=== PATIENT | female | born 1985 ===

== ENCOUNTER 2017-12-07 06:36 | Day surgery (SDC) | payer BC ==
[~2017-12-07] VITALS: Ht 165.1 cm; Wt 119.7 kg
[2017-12-07] VITALS (8 sets, daily range): BP systolic 117–140; BP diastolic 50–90
[2017-12-07] MEDS ORDERED: LR 1000ml 1,000 ML IVLG SCH ×2 (07:00→07:41)
[2017-12-07] MEDS ORDERED: TOPROL PO (07:34)
[2017-12-07] MEDS ORDERED: OMEPRAZOLE20 M2 ORAL (07:34)
[2017-12-07] MEDS ORDERED: ONE DAILY FOR1 EACH ORAL (07:34)
[2017-12-07] MEDS ORDERED: BIOTIN2500 MCG PO (07:34)
[2017-12-07] MEDS ORDERED: MINASTRIN 24 F1 EACH PO (07:34)
[2017-12-07] MEDS ORDERED: DiphenhydrAMINE 50mg/ml Inj IVP PRN (07:45)
[2017-12-07] MEDS ORDERED: Midazolam 2mg/2ml Inj IVP PRN (07:45)
[2017-12-07] MEDS ORDERED: fentaNYL 100 mcg/2 mL IV PRN (07:45)
[2017-12-07] MEDS ORDERED: Atropine Inj 1mg/10ml Syr IV PRN (07:45)
--- NOTE | 2017-12-07 07:46 | Anethesia Preoperative Eval ---
Anesthesia Pre-op PMH/ROS General Date of Evaluation: December 07, 2017 Time of Evaluation: 07:42 Anesthesiologist: aidan ASA Score: ASA 3 Mallampati Score Class I : Soft palate, uvula, fauces, pillars visible Class II: Soft palate, uvula, fauces visible Class III: Soft palate, base of uvula visible Class IV: Only hard plate visible Mallampati Classification: Class II Surgeon: destiny Diagnosis: gerd Surgical Procedure: egd Anesthesia History: none Family History: no anesthesia problems Allergies: Coded Allergies: No Known Allergies (Unverified , 12/07/17) Medications: see eMAR Past Medical History Cardiovascular: Reports: HTN Pulmonary: Denies: asthma, COPD, LIDYA, other Gastrointestinal/Genitourinary: Reports: GERD, other - pcos, kidney stones Neurologic/Psychiatric: Reports: depression/anxiety, other - vertigo Endocrine: Reports: DM HEENT: Denies: cataract (L), cataract (R), glaucoma, TAKOTNA (L), TAKOTNA (R), other Hematology/Immune: Denies: anemia, DVT, bleeding disorder, other Musculoskeletal/Integumentary: Reports: other - back pain Other: obesity Anesthesia Pre-op Phys. Exam Physician Exam Last Vital Signs Date Time Temp Pulse Resp B/P (MAP) Pulse Ox O2 Delivery O2 Flow Rate FiO2 12/07/17 07:30 98.8 94 18 127/80 97 Room Air 98.8 Constitutional: NAD Neurologic: CN 2-12 intact Cardiovascular: RRR Respiratory: CTA Gastrointestinal: S/NT/ND Airway Exam Mallampati Score: Class II MO: full Neck: short TMD: 2fb ROM: limited Anesthesia Pre-op A/P Labs Serum Test negative Risk Assessment & Plan Assessment: asa3 Plan: mac Status Change Before Surgery: No Pre-Antibiotics Drug: Shivani Prajapati MD December 07, 2017 07:46
[2017-12-07] MEDS ORDERED: Lidocaine 1% MPF 10mg/ml 5ml ONE (08:00)
[2017-12-07] MEDS ORDERED: LR 1000ml ONE (08:00)
[2017-12-07] MEDS ORDERED: Midazolam 2mg/2ml Inj ONE (08:00)
[2017-12-07] MEDS ORDERED: Propofol 200mg/20ml IV ONE (08:00)
--- NOTE | 2017-12-07 08:10 | Pre-Procedure Note/Attestation ---
Pre-Procedure Note/Attestation Complete Prior to Procedure Planned Procedure: not applicable Procedure Narrative: egd Indications for Procedure Pre-Operative Diagnosis: GERD Attestation I attest that I discussed the nature of the procedure; its benefits; risks and complications; and alternatives (and the risks and benefits of such alternatives ), prior to the procedure, with the patient (or the patient's legal cash application representative). I attest that, if there was a reasonable possibility of needing a blood transfusion, the patient (or the patient's legal cash application representative) was given the [facility] standardized written summary, pursuant to the Jacinto Callery Blood Safety Act ([place] Health and Safety Code # 1645, as amended). I attest that I re-evaluated the patient just prior to the surgery and that there has been no change in the patient's H&P, except as documented below: Slava Sotelo MD December 07, 2017 08:10
--- NOTE | 2017-12-07 08:11 | Short Stay Surgery H&P ---
History of Present Illness History of Present Illness Chief Complaint see H&P HPI Jennifer Minor is a 32 year old female who was admitted on for GERD Patient History Allergies: Coded Allergies: No Known Allergies (Unverified , 12/07/17) Medication History Scheduled Biotin (Biotin), 10,000 MCG PO DAILY, (Reported) Folic Acid/Mv,Fe,Other Min (One Daily For Women Tablet), 1 TAB ORAL DAILY, ( Reported) Noreth A-Et Estra/Fe Fumarate (Minastrin 24 Fe Chewable Tab), 1 EACH PO DAILY, ( Reported) Omeprazole (Omeprazole), 20 MG ORAL DAILY, (Reported) [Toprol], 50 MG PO DAILY, (Reported) Physical Exam Vital Signs Last Vital Signs Date Time Temp Pulse Resp B/P (MAP) Pulse Ox O2 Delivery O2 Flow Rate FiO2 12/07/17 07:30 98.8 94 18 127/80 97 Room Air 98.8 Labs Laboratory Tests Test 12/07/17 07:25 Human Chorionic Gonadotropin, Qual Negative Plan Attestation Are the patient's medical conditions optimized for surgery? Slava Sotelo MD December 07, 2017 08:11
--- NOTE | 2017-12-07 08:53 | Immediate Post-Op Evaluation ---
Immediate Post-Op Evalulation Immediate Post-Op Evalulation Procedure: egd w/bx Date of Evaluation: December 07, 2017 Time of Evaluation: 08:46 IV Fluids: 250ml lr Blood Products: none Estimated Blood Loss: negligible Blood Pressure Systolic: 131 Blood Pressure Diastolic: 69 Pulse Rate: 78 Respiratory Rate: 18 O2 Sat by Pulse Oximetry: 100 Temperature (Fahrenheit): 97.3 Pain Score (1-10): 0 Nausea: No Vomiting: No Complications none Patient Status: awake, reacts, patent Hydration Status: adequate Drug: Shivani Prajapati MD December 07, 2017 08:53
--- NOTE | 2017-12-07 08:55 | 48 Hour Post Anesthesia Eval ---
Post Anesthesia Evaluation Procedure: egd w/bx Date of Evaluation: December 07, 2017 Time of Evaluation: 08:48 Blood Pressure Systolic: 126 0: 85 Pulse Rate: 76 Respiratory Rate: 18 Temperature (Fahrenheit): 97.3 O2 Sat by Pulse Oximetry: 100 Airway: patent Nausea: No Vomiting: No Pain Intensity: 0 Hydration Status: adequate Cardiopulmonary Status: stable Mental Status/LOC: patient returned to baseline Post-Anesthesia Complications: none Follow-up care needed: N/A Shivani Be MD December 07, 2017 08:55
[2017-12-07 10:49] LABS: BASOPHILS % (AUTO) 0.8 % (0.0-2.0); EOSINOPHILS % (AUTO) 0.5 % (0.0-3.0); HEMATOCRIT 40.9 % (37.0-47.0); HEMOGLOBIN 12.9 G/DL (12.0-16.0); LYMPHOCYTES % (AUTO) 24.9 % (20.0-45.0); MEAN CORPUSCULAR VOLUME 84 FL (80-99); MONOCYTES % (AUTO) 3.9 % (1.0-10.0); NEUTROPHILS % (AUTO) 69.9 % (45.0-75.0); PLATELET COUNT 343 K/UL (150-450); RED BLOOD COUNT 4.84 M/UL (4.20-5.40); RED CELL DISTRIBUTION WIDTH 12.2 % (11.6-14.8); WHITE BLOOD COUNT 10.5 K/UL (4.8-10.8)
[2017-12-07 11:15] LABS: INR 0.9 (0.9-1.1)
[2017-12-07 11:23] LABS: ALANINE AMINOTRANSFERASE 41 U/L (12-78); ALBUMIN 3.8 G/DL (3.4-5.0); ALBUMIN/GLOBULIN RATIO 0.7 (1.0-2.7); ALKALINE PHOSPHATASE 82 U/L (46-116); ANION GAP 13 mmol/L (5-15); ASPARTATE AMINO TRANSFERASE 34 U/L (15-37); BILIRUBIN,TOTAL 0.6 MG/DL (0.2-1.0); BLOOD UREA NITROGEN 12 mg/dL (7-18); CALCIUM 9.8 MG/DL (8.5-10.1); CARBON DIOXIDE 24 MMOL/L (21-32); CHLORIDE 102 MMOL/L (98-107); CREATININE 0.8 MG/DL (0.55-1.30); POTASSIUM 3.8 MMOL/L (3.5-5.1); SODIUM 139 MMOL/L (136-145)
--- NOTE | 2017-12-07 11:41 | Endoscopy Procedure Note ---
Endoscopy Procedure Note General Indication for Procedure: camille Operative Findings/Diagnosis: gastric polyps, HH Specimen: yes Pt Tolerated Procedure Well: Yes Estimated Blood Loss: none Anesthesia Anesthesiologist: Justino Price Anesthesia: moderate sedation Medications Medication Given: see anesthesia record Inserted Devices Implant(s) used?: No GI Core Measures 50 yrs or older w/o bx or poly: Not Applicable 10yrs. F/U not recommended: Not Applicable If not recommended, why?: Slava Sotelo MD December 07, 2017 11:41
--- NOTE | 2017-12-07 11:42 | Brief Operative Note ---
Immediate Post Operative Note Operative Note Chief Complaint: camille Pre-op Diagnosis: GERD Procedure: esophagogastroduodenoscopybx, snare, Post-op Diagnosis: HH, gastric polyps (bx, snare) Surgeon: destiny Anesthesiologist: juaquin handley Anesthesia: general, moderate sedation Specimen: yes Complications: none Condition: stable Fluids: recorded Estimated Blood Loss: none Drains: none Implant(s) used?: No Slava Sotelo MD December 07, 2017 11:42
--- NOTE | 2017-12-07 15:30 | Procedure Note ---
DATE OF PROCEDURE: 12/07/2017 GASTROENTEROLOGY PROCEDURE REPORT PROCEDURE: Upper gastrointestinal endoscopy with biopsy. SURGEON: Slava Sotelo M.D. ANESTHESIA: Please see the separate anesthesiologist notes for details. PRE-ENDOSCOPIC DIAGNOSIS: Symptoms of gastroesophageal reflux. POST-ENDOSCOPIC DIAGNOSES: 1. A 2 to 3 cm hiatal hernia without evidence of obvious esophagitis. 2. Diminutive midbody gastric polyps, status post biopsy. 3. Larger pedunculated polyps in the fundus measuring approximately 1 cm, status post snare polypectomy. 4. Status post random biopsies of the antrum. DESCRIPTION OF PROCEDURE: The procedure, its risks, indications, alternatives, and possible complications were explained to the patient and informed consent was obtained. The patient was then sedated in the left lateral decubitus position. A diagnostic upper endoscope was introduced through the oropharynx and advanced to the duodenum without difficulty. The endoscope was then gradually withdrawn and the mucosa was examined carefully. Examination of the upper gastrointestinal mucosa was normal for above findings. The endoscope was removed. The patient was sent to recovery in good condition. COMPLICATIONS: None. RECOMMENDATIONS: 1. Follow up biopsy results. 2. Prilosec daily for two weeks. 3. Reflux precautions. 4. Outpatient followup. Thank you for asking me to participate in the care of this patient. Slava Sotelo M.D. DR: TRES JOB#: [id number] CC: Meng Leyva M.D.
== END 2017-12-07 10:45 | disposition home or self-care (01) ==
LOC: GAS 06:36
DX: K21.9 Gastro-esophageal reflux disease without esophagitis (principal); K44.9 Diaphragmatic hernia without obstruction or gangrene; K31.7 Polyp of stomach and duodenum; E78.00 Pure hypercholesterolemia, unspecified; R73.03 Prediabetes; I10 Essential (primary) hypertension; E66.01 Morbid (severe) obesity due to excess calories; Z68.41 Body mass index [BMI] 40.0-44.9, adult; F32.9 Major depressive disorder, single episode, unspecified; F41.9 Anxiety disorder, unspecified
CPT/HCPCS: 36415; 43239; 80053; 84703; 85025; 85610; 85730; J2250; J2704; J7120